=== PATIENT | male | born 1965 | race Caucasian/White ===

== ENCOUNTER 2021-03-05 14:43 | Emergency (ER) | payer SELFPAY ==
[2021-03-05 16:08] LABS: HEMOGLOBIN 16.2 gm/dl (14.0-17.5); RED BLOOD COUNT 4.88 M/UL (4.20-5.50); WHITE BLOOD COUNT 2.5 K/UL (4.5-11.0)
[2021-03-05 16:39] LABS: BUN/CREATININE RATIO 11 (0-10)
== END 2021-03-05 18:37 | disposition home or self-care (01) ==
LOC: ER1 14:43
PROVIDERS: Physician Assistant
DX: U07.1 COVID-19 (principal)
CPT/HCPCS: 71045; 80053; 81001; 82550; 82553; 83615; 83874; 84484; 85025; 99284